=== PATIENT | female | born 1965 | race Hispanic/Latino ===

== ENCOUNTER 2016-08-20 10:59 | Day surgery (SDC) | payer BC, MEDICARE ==
[2016-08-20 11:21] VITALS: RESP 20
[2016-08-20 11:30] VITALS: BMI 30.2
[2016-08-20] MEDS ORDERED: methylPREDNISolone Depo 80 mg/ml Inj ONE (11:58)
[2016-08-20] MEDS ORDERED: Lidocaine 1% Inj (20ml) ONE (11:59)
[2016-08-20] MEDS ORDERED: Iohexol 300 10 ML ONE (11:59)
[2016-08-20] MEDS ORDERED: Bupivacaine HCl 0.5% PF (10 ml) Inj ONE (12:00)
[2016-08-20] MEDS ORDERED: Propofol 10 mg/ml Inj (20 ML) ONE (12:11)
[2016-08-20] MEDS ORDERED: Lactated Ringer's 1,000 ML IV ONE (12:25)
[2016-08-20] MEDS ORDERED: Lactated Ringer's 1,000 ML IV SCH (12:38)
[2016-08-20 13:51] VITALS: BP 149/91; PULSE 66; TEMP 98.2; O2SAT 98
--- NOTE | 2016-08-20 15:11 | RAD ---
PROCEDURE: Intraoperative Fluoroscopy. HISTORY: PAIN MANAGEMENT FINDINGS: Fluoroscopic assistance was provided. Approximately 28.2 seconds fluoroscopy time utilized.
--- NOTE | 2016-08-20 19:19 | OP ---
PROCEDURE DATE: 08/20/2016 PREOPERATIVE DIAGNOSIS: Lumbar facet syndrome. POSTOPERATIVE DIAGNOSIS: Lumbar facet syndrome. PROCEDURE: Bilateral L3, L4, and L5 medial branch nerve block. ANESTHESIOLOGIST: Dr. Duggan SURGEON: Dr. Mohamud ANESTHESIA TYPE: Monitored anesthesia care. COMPLICATIONS: None. SPECIMEN: None. DESCRIPTION OF PROCEDURE: After re-discussion of the procedure with the patient including its risks, benefits, alternatives, outcome data, possibility of no effect or increased pain, the patient consen dennis to the procedure. She denies any recent infections, bleeding tendencies, or being on anticoagula nts. The decision was then made to proceed to the OR. The patient was placed on the fluoroscopy table in a prone position with 2 pillows underneath her abd omen. The back was prepped and draped in a usual sterile fashion and sterile technique was adhered t o during the entire procedure. The L3, L4, and L5 medial branch nerves are located at the intersecti on of the superior articular process and the transverse process of the L4 and L5 pedicles along with the sacral ala. The procedure was first performed on the right by turning the fluoroscopy towards th e right at approximately 15 degrees. The skin overlying the 3 above target areas was then infiltrate d with 1% lidocaine using a 25 gauge needle. Subsequently, a 22 gauge 3-1/2 inch spinal needle was t hen incrementally advanced under fluoroscopic guidance until tip of the needle made bony contact with all 3 target areas. After satisfactory positioning of all 3 needles, approximately mL of 0.5% Marcaine and Depo-Medrol mixture was injected. The needle was then removed and the same exact proce dure was performed on the contralateral left side using the same medications and techniques. At the end of the case, the patient's back was cleaned and dried and Band-Aids were applied. The patient was then transferred to the recovery area in good condition without any signs of [employer] [place] or any neurological deficits. She will have a followup in the office in approximately 2-4 weeks . En-Rafa Mohamud MD cc: [phone] TT: 08/20/2016 19:17:57 en
== END 2016-08-20 15:00 | disposition home or self-care (01) ==
LOC: H.OPSURG 10:59
PROVIDERS: ATTEND Anesthesiology
DX: M47.816 Spondylosis without myelopathy or radiculopathy, lumbar region (principal)
CPT/HCPCS: 64520; J1040; J2001; J2704; J7120

== ENCOUNTER 2018-05-28 09:55 | Day surgery (SDC) | payer MEDICARE ==
[2018-05-26 10:08] VITALS: BMI 29.5
--- NOTE | 2018-05-28 10:36 | CP.SDSHP ---
Same Day Surgery H & P - History Proposed Procedure: Cervical medial branch nerve blocks Pre-Op Diagnosis: Cervical spondylosis - Previous Medical/Surgical History Cardiac: Hypertension Pain: 8.Very Severe - Allergies Allergies: Allergies No Known Allergies Allergy (Verified 05/26/18 10:08) - Physical Exam Vital Signs: Vital Signs 05/28/18 10:31 Temperature 97.7 F Pulse Rate 60 Respiratory 18 Rate Blood Pressure 149/78 O2 Sat by Pulse 96 Oximetry Neuro: WNL Heart: WNL Lungs: WNL - Impression Impression: Cervical spondylosis Pt. Evaluated Today:Candidate for Anesthesia & Procedure: Yes Short Stay Discharge - Short Stay Discharge Admitting Diagnosis/Reason for Visit: M47.812 Disposition: HOME/ ROUTINE Referrals: Prabhjot Tate MD [Primary Care Provider] -
[2018-05-28] MEDS ORDERED: Lactated Ringer's 1,000 ML IV ONE (10:54)
[2018-05-28] MEDS ORDERED: methylPREDNISolone Depo 80 mg/ml Inj ONE (11:46)
[2018-05-28] MEDS ORDERED: Iohexol 300 10 ML ONE (11:48)
[2018-05-28] MEDS ORDERED: Bupivacaine HCl 0.5% PF (30 ml) Inj IJ ONE ×3 (12:15→12:36)
[2018-05-28] MEDS ORDERED: LIDOCAINE 2% 10ML 20 MG/ML VIAL IJ ONE ×3 (12:15→12:36)
[2018-05-28] MEDS ORDERED: Iohexol 300 10 ML IJ ONE ×3 (12:15→12:36)
[2018-05-28] MEDS ORDERED: methylPREDNISolone Depo 80 mg/ml Inj IM ONE ×3 (12:15→12:36)
[2018-05-28] MEDS ORDERED: Midazolam 2 MG/2 ML VIAL ONE (12:34)
[2018-05-28] MEDS ORDERED: Lactated Ringer's 500 ML IV ONE (12:50)
[2018-05-28 14:40] VITALS: RESP 18
[2018-05-28 17:11] VITALS: BP 135/80; PULSE 82; TEMP 98; O2SAT 99
--- NOTE | 2018-05-28 22:38 | OP ---
PROCEDURE DATE: 05/28/2018 PREOPERATIVE DIAGNOSIS: Cervical spondylosis. POSTOPERATIVE DIAGNOSIS: Cervical spondylosis. PROCEDURE: Bilateral C4, C5, and C6 medial branch nerve blocks. ANESTHESIOLOGIST: Dr. Jones. SURGEON: Shanthi Mohamud MD TYPE OF ANESTHESIA: Monitored anesthesia care. COMPLICATIONS: None. SPECIMEN: None. DESCRIPTION OF PROCEDURE: As follows: After we had a discussion of the procedure with the patient including its risks, benefits, alternatives, outcome data, possibility of no effect or increased pain, the patient consented to the procedure. She denies any recent infection, bleeding tendencies, or being on anticoagulants. Decision was then made to proceed to the OR. The patient was placed on the fluoroscopy table in a prone position with two pillows underneath her abdomen. The head and chest was placed in a head positioner. The neck was prepped and draped in a usual sterile fashion and sterile technique was adhered to during the entire procedure. The C4, C5, and C6 vertebral levels were first identified in the anteroposterior view. The medial branch nerves were located at the mid point of the facet border on the corresponding levels. The skin overlying the medial branch nerves on the right side was first infiltrated with 1% lidocaine using a 25-gauge needle. Subsequently, a 25-gauge 3.5-inch spinal needle was incrementally advanced under fluoroscopic guidance until tip of the needle made bony contact with the targeted areas. The needle was then worked slightly laterally and anteriorly. After satisfactory positioning of all three needles, approximately 0.5 mL of Isovue contrast was injected under live view to rule out intravenous uptake. After doing so, approximately 2 mL of 0.25% Marcaine and Depo-Medrol mixture was injected. The needle was then removed and the exact procedure was repeated on the contralateral left side at the corresponding levels. At the end of the case, the patient's neck was cleaned and dry bandages were applied. The patient was then transferred to the recovery area in good condition without any signs of [employer] toxicity or any neurological deficit. She will be following up in our office in approximately two to four weeks. Shanthi Mohamud MD
--- NOTE | 2018-05-31 16:14 | RAD ---
Date of service: 05/28/2018 PROCEDURE: Intraoperative Fluoroscopy. HISTORY: PAIN MANAGEMENT FINDINGS: Fluoroscopic assistance was provided for cervical injections. Please refer to the operative report from [facility]. Total fluoroscopic time (continuous mode) utilized during the procedure 28.5 seconds. Total exam DLP: 3.68 (mGy).
== END 2018-05-28 16:30 | disposition home or self-care (01) ==
LOC: H.OPSURG 09:55
PROVIDERS: ATTEND Anesthesiology
DX: M47.812 Spondylosis without myelopathy or radiculopathy, cervical region (principal); I10 Essential (primary) hypertension; F17.210 Nicotine dependence, cigarettes, uncomplicated
CPT/HCPCS: 64490; 64491; J1040; J2250; J3010; J7120; Q9967